=== PATIENT | female | born 1990 | race American Indian/Alaskan Native ===

== ENCOUNTER 2017-05-06 12:26 | Emergency (ER) | payer OTHER, BC ==
[2017-05-06 12:30] VITALS: RESP 18; O2SAT 99
[2017-05-06] MEDS ORDERED: Naproxen 550 mg Tab PO STA (13:07)
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
[2017-05-06 14:22] VITALS: BP 116/70; PULSE 62; TEMP 98.2
== END 2017-05-06 14:22 | disposition home or self-care (01) ==
LOC: C.ER 12:26
DX: S16.1XXA Strain of muscle, fascia and tendon at neck level, initial encounter (principal); V49.50XA Passenger injured in collision with unspecified motor vehicles in traffic accident, initial encounter